=== PATIENT | male | born 1940 | race Caucasian/White ===

== ENCOUNTER 2018-05-28 13:48 | Outpatient (CLI) | payer MEDICARE, BC ==
[~2018-05-28] VITALS: Ht 172.7 cm; Wt 104.3 kg
[~2018-05-28 13:48] MED LIST: GLIM1TAB46 PO; LOVA20TA2 PO; METF-951 PO; VALS1TAB81 PO
[2018-05-28 14:20] LABS: TOTAL HEMOGLOBIN 13.4 G/dl (14.0-18.0)
[2018-05-28] MEDS ORDERED: albuterol 2.5 MG/3 ML nebule NEB PRN (14:40)
== END 2018-05-28 23:59 | disposition home or self-care (01) ==
LOC: RT 13:48
PROVIDERS: ATTEND Internal Medicine Cardiovascular Disease
DX: Z12.2 Encounter for screening for malignant neoplasm of respiratory organs (principal); J98.4 Other disorders of lung; Z88.8 Allergy status to other drugs, medicaments and biological substances; Z79.899 Other long term (current) drug therapy
CPT/HCPCS: 85018; 94060; 94727; 94729; 94760